=== PATIENT | male | born 1955 | race Caucasian/White ===

== ENCOUNTER → 2020-01-13 | Outpatient (CLI) | payer MEDICARE ==
[2020-01-13 16:56] LABS: HCT 41.2 % (39.0-53.0); HGB 13.4 gm/dL (13.0-17.5); MCH 30.1 pg (25.0-35.0); MCHC 32.4 g/dL (31.0-37.0); MCV 92.8 fL (80.0-100.0); Mean Platelet Volume 6.5; Platelet Count 290 k/uL (150-450); RBC 4.44 m/uL (4.30-5.90); RDW 13.2 % (11.5-15.5); WBC 7.1 k/uL (3.8-10.6)
[2020-01-13 17:08] LABS: Partial Thromboplastin Time 24.7 sec (22.0-30.0); Prothrombin Time 10.1 sec (9.0-12.0)
[2020-01-13 17:14] LABS: Appearance,Urine Clear (Clear); Bilirubin,Urine Negative (Negative); Blood,Urine Trace (Negative); Color,Urine Light Yellow; Glucose,Urine (UA) Negative (Negative); Ketones,Urine Negative (Negative); Leukocyte Esterase,Urine Negative (Negative); Nitrite,Urine Negative (Negative); PH, Urine 6.5 (5.0-8.0); Protein,Urine Negative (Negative); RBC,Urine 1 /hpf (0-5); Specific Gravity,Urine 1.006 (1.001-1.035); Urobilinogen,Urine <2.0 mg/dL (<2.0); WBC,Urine <1 /hpf (0-5)
[2020-01-13 17:18] LABS: ALT 17 U/L (4-49); AST 25 U/L (17-59); African American GFR (CKD) >90 (>60 ml/min/1.73 sqM); Albumin 4.2 g/dL (3.5-5.0); Alkaline Phosphatase 93 U/L (38-126); Anion Gap 7 mmol/L; Blood Urea Nitrogen 11 mg/dL (9-20); Calcium 9.6 mg/dL (8.4-10.2); Carbon Dioxide 29 mmol/L (22-30); Chloride 102 mmol/L (98-107); Glucose 107 mg/dL (74-99); Non-African American GFR(CKD) 90 (>60 ml/min/1.73 sqM); Potassium 4.6 mmol/L (3.5-5.1); Sodium 138 mmol/L (137-145); Total Bilirubin 0.4 mg/dL (0.2-1.3); Total Protein 6.9 g/dL (6.3-8.2)
== END | disposition home or self-care (01) ==
LOC: LABPAT 01-09 14:53
PROVIDERS: ATTEND Orthopaedic Surgery
DX: Z01.812 Encounter for preprocedural laboratory examination (principal); Z01.818 Encounter for other preprocedural examination
CPT/HCPCS: 80053; 81001; 85027; 85610; 85730; 87070

== ENCOUNTER 2020-01-23 11:18 | Day surgery (SDC) | payer MEDICARE, OTHER ==
[2020-01-16 12:35] VITALS: BMI 26.9
[~2020-01-23 11:18] MED LIST: ACETAMINOPHEN TAB 500 MG TAB PO PRN; GABAPENTIN 300 MG CAP PO PRN; MELOXICAM 7.5 MG TAB PO PRN; TRANEXAMIC ACID 1,000 MG in SODIUM CHLORIDE 0.9% 100 ML IVPB PRN
[2020-01-23] MEDS ORDERED: LACTATED RINGERS 1,000 ML IV ONE ×2 (12:02→13:47)
[2020-01-23] MEDS ORDERED: LIDOCAINE 1% (10MG/ML) FOR IV START INTRADERMA ONE (12:03)
[2020-01-23] MEDS ORDERED: ONDANSETRON 4 MG/2 ML VIAL ONE (12:14)
[2020-01-23] MEDS ORDERED: ONDANSETRON 4 MG/2 ML VIAL IVP ONE (12:19)
[2020-01-23] MEDS ORDERED: NALOXONE 0.4 MG/ML 1 ML VIAL IV PRN (12:20)
[2020-01-23] MEDS ORDERED: HYDROcodone/APAP 5-325MG 1 EACH TAB PO PRN (12:20)
[2020-01-23] MEDS ORDERED: HYDROmorphone 0.2 MG/1 ML SYRINGE IVP PRN ×2 (12:20→12:31)
[2020-01-23] MEDS ORDERED: MAGNESIUM HYDROXIDE 2,400 MG/10 ML CUP PO PRN (12:20)
[2020-01-23] MEDS ORDERED: DEXAMETHASONE SOD PHOSPHATE 4 MG/ML 1 ML VIAL IVP ONE (12:20)
[2020-01-23] MEDS ORDERED: hydrOXYzine pamoate 25 MG CAP PO PRN (12:20)
[2020-01-23] MEDS ORDERED: HYDROmorphone 0.5 MG/0.5 ML SYRINGE IVP PRN ×2 (12:20)
[2020-01-23] MEDS ORDERED: diazePAM 5 MG TAB PO PRN (12:20)
[2020-01-23] MEDS ORDERED: ONDANSETRON 4 MG/2 ML VIAL IVP PRN (12:20)
[2020-01-23] MEDS ORDERED: HEPARIN SODIUM,PORCINE 10,000 UNIT/ML 1 ML VIAL ONE (12:45)
[2020-01-23] MEDS ORDERED: SODIUM CHLORIDE 0.9% 100 ML BAG ONE (12:45)
[2020-01-23] MEDS ORDERED: SODIUM CHLORIDE 0.9% IRRIG 1,000 ML BTL IRRIGATION ONE (12:45)
[2020-01-23] MEDS ORDERED: fentaNYL (PF) 50 MCG/ML 2 ML AMP ONE (12:45)
[2020-01-23] MEDS ORDERED: ePHEDrine SULFATE/0.9% NACL/PF 50 MG/5 ML SYRINGE IV ONE (12:45)
[2020-01-23] MEDS ORDERED: TRANEXAMIC ACID 1,000 MG/10 ML VIAL ONE (12:45)
[2020-01-23] MEDS ORDERED: PROPOFOL 10 MG/ML 20 ML VIAL IV ONE (12:45)
[2020-01-23] MEDS ORDERED: MIDAZOLAM 2 MG/2 ML VIAL ONE (12:45)
[2020-01-23] MEDS: ROPIVACAINE 246.25 MG, EPINEPHrine 0.5 MG, KETOROLAC 30 MG, cloNIDine HCL/PF 80 MCG, WA... MISCELLANE PRN ×10 (13:21→13:53)
[2020-01-23] MEDS ORDERED: ceFAZolin 3,000 MG in SODIUM CHLORIDE 0.9% IRRIGATIO 3,000 ML IRRIGATION ONE (13:22)
--- NOTE | 2020-01-23 14:02 | P.OP ---
Date of Procedure: 01/23/20 Preoperative Diagnosis: Severe osteoarthritis right hip Postoperative Diagnosis: Severe osteoarthritis right hip Procedure(s) Performed: Right total hip arthroplasty direct anterior approach Implants: Cotton and nephew Polarstem size 6 standard Cotton & Nephew R3, 3 hole acetabular shell, 54 mm Cotton & Nephew reflection 6.5 mm cancellus screw, 20 mm 2 Cotton & Nephew R3, XLPE 20 acetabular liner Cotton & Nephew Oxinium femoral head 36 m, +4 All components were press-fit. The articulation is Oxinium on polyethylene. Anesthesia: spinal Surgeon: Buddy Montemayor Underwater Welder #1: Martha Donato Estimated Blood Loss (ml): 100 Pathology: other (Femoral head) Condition: stable Disposition: PACU Indications for Procedure: After failure of conservative treatment we discussed the surgical and nonsurgical treatment options at length. Patient wishes to proceed with a total hip arthroplasty with a direct anterior approach. Complications specific to this procedure were discussed at length, including but not limited to infection, leg length discrepancy, dislocation, and nerve injury. Covid-19 was also discussed at length with the patient, and they are aware of the current policies and procedures. The patient was given the option of delaying surgery, but they elect to proceed knowing these risks. Patient is aware of all these complications and informed consent was obtained Operative Findings: The operative findings are consistent with severe osteoarthritis of the right hip Description of Procedure: Patient was seen and evaluated in the preoperative area, consent was reviewed, and the surgical site was marked with a skin marker. Patient was then brought to the operating room and given prophylactic antibiotics intravenously. 1 g of Tranexamic acid was also given. A spinal anesthetic was administered by the anesthesia department. The patient was then placed on the [place] table with the bony prominences well-padded. The hip area was then prepped and draped in usual sterile fashion. A universal timeout was then performed, which confirmed the patient's name, surgical site, ALLERGIES, and procedure being performed. Next the incision site was located at 1 cm distal and 1 cm lateral to the anterior superior iliac spine. The skin and subcutaneous tissues were sharply incised. Incision was carefully dissected down to the fascia overlying the tensor fascia jamel muscle. This fascia was then incised in line with the incision. Next, using blunt finger dissection, the tensor fascia jamel muscle was dissected off its investing fascia. The muscle was then carefully retracted laterally with a cobra retractor over the lateral neck of the femur. Next, the circumflex vessels were identified and cauterized using the AquaMantis device. The anterior hip capsule was then exposed. The capsule was then opened and an inverted T fashion. Cobra retractors were then placed intracapsularly. The proximal femur was then visualized. The femoral neck was then osteotomized appropriate level above the lesser trochanter. Small amount of traction was placed with the [place] table. A small wedge of bone was then removed from the remaining femoral head. Next, using a corkscrew femoral head was easily removed from the acetabulum. On gross visual inspection, the femoral head had complete loss of articular cartilage in multiple periarticular osteophytes. Attention was then turned to the acetabulum. the acetabulum was exposed and any remaining labrum was excised. Sequential reaming of the acetabulum was performed using fluoroscopic guidance. When the appropriate size was reached, a trial was then placed. The position and fit of the trial was checked with fluoroscopy. The trial was then removed. Then, using fluoroscopic guidance, the final implant was impacted at 20 of anteversion and 40 of abduction, and fully seated in the acetabulum. 2 screws were then placed in the acetabulum. Again fluoroscopy was used to check positi on of the screws. Next, the liner was then impacted, with a 20 elevated liner located in the anterior superior quadrant. Component locking was confirmed. Attention was then directed to the femur. With the aid of the P[place]aw table, the femur was externally rotated to approximately 130, extended, and abducted under the opposite leg. A side hook was then placed under the proximal femur, and the side hook elevator was used to elevate the proximal femur. Retractors were then placed. A capsular release was performed, as well as a release of the conjoined tendon, which afforded excellent visualization of the proximal femur. Next, a box osteotome was used to lateralize the proximal femur. A displayer merchandise was then used to locate the femoral canal. Sequential broaching was then performed with appropriate size which afforded excellent fixation in the proximal femur. A trial was then placed with appropriate head and neck, and the hip was gently reduced with the aid of the P[place] table. Fluoroscopy was then used to check position of the components, as well as to ensure equal leg lengths. The hip was then gently dislocated and the trials were then removed. Final implants were then impacted and the hip was again reduced. Final fluoroscopic x-rays confirmed that the components were in anatomic position, as well as equal leg lengths. The hip was also taken through range of motion, and found to be stable. The hip was then copiously irrigated with antibiotic solution with pulsatile lavage. The hip was then irrigated with Irrisept solution. The soft tissues were then injected with a ropivacaine solution, which consisted of 246.25 mg of ropivacaine, 0.5 mg of epinephrine, 30 mg of Toradol, 80 g of clonidine, and 48.45 mL of sterile water, for a total of 100 mL of fluid injected. A second dose of 1 g of Tranexamic acid was also given. the fascia was then closed with 2-0 strata fix suture. The subcutaneous tissue was closed with 3-0 Vicryl. The subcuticular tissue was closed with 3-0 strata fix suture. The skin was then closed with Dermabond glue and a sterile silver dressing. The patient was then transferred to the recovery room in stable condition. The certified physician's assistant HEIDI Figueroa was required due to the complexity of surgery, and the need for skilled surgical instruments inspector for positioning, draping, exposure, retraction, and closure of the wound.
--- NOTE | 2020-01-23 14:13 | XR ---
EXAMINATION TYPE: XR Hip Limited RT DATE OF EXAM: 01/23/2020 COMPARISON: NONE HISTORY: Postop TECHNIQUE: One view submitted. FINDINGS: There is postsurgical change in near anatomic alignment. There is soft tissue edema and emphysema. IMPRESSION: 1. Postoperative change. Appears in near-anatomic alignment.
--- NOTE | 2020-01-23 14:15 | FL ---
EXAMINATION TYPE: FL guidance operating room DATE OF EXAM: 01/23/2020 HISTORY: Fluoroscopy time 53 seconds of fluoroscopy provided. IMPRESSION: 1. Fluoroscopy time.
[2020-01-23] MEDS: SODIUM CHLORIDE 0.9% 1,000 ML IV SCH (16:05)
[2020-01-23] MEDS ORDERED: amLODIPine 5 MG TAB PO SCH (18:00)
[2020-01-23] MEDS ORDERED: ATORVASTATIN 80 MG TAB PO SCH (18:00)
[2020-01-23] MEDS: ASPIRIN 325 MG TAB PO SCH (20:38)
[2020-01-23] MEDS ORDERED: SENNOSIDES-DOCUSATE SODIUM 1 EACH TAB PO SCH (21:00)
--- NOTE | 2020-01-23 22:58 | CONS ---
CONSULTATION REASON FOR CONSULTATION: Advice regarding CAD and multiple medical issues requested by Orthopedic surgery. HISTORY OF PRESENT ILLNESS: This 64-year-old gentleman with past medical history of CAD, hypertension, history of DJD, sleep apnea, underwent right total hip joint arthroplasty for severe degenerative joint disease. Patient being closely monitored. There is no history of fever, rigors. No history of headache loss of consciousness, seizures at this time. PAST MEDICAL HISTORY: History of CAD, hypertension, DJD, sleep apnea. MEDICATIONS: Prior to admission include Lipitor, aspirin, Norvasc, Motrin, Tylenol. ALLERGIES: None. FAMILY HISTORY: No history of any strokes in the family. SOCIAL HISTORY: No history of smoking. No history of alcohol. REVIEW OF SYSTEMS: ENT: No diminished vision. No diminished hearing. CARDIOVASCULAR: No angina or palpitations. RESPIRATIONS: No cough. No hemoptysis. GI no nausea or vomiting. : No dysuria. NERVOUS SYSTEM: No numbness or weakness. ALLERGY/IMMUNOLOGY: No asthma or hayfever. MUSCULOSKELETAL as mentioned earlier. HEMATOLOGY/ONCOLOGY: No history of anemia. ENDOCRINE: No history of diabetes or hypothyroidism. CONSTITUTIONAL: As mentioned earlier. DERMATOLOGY: Negative. RHEUMATOLOGY: Negative. CONSTITUTIONAL: As mentioned earlier. PHYSICAL EXAMINATION: Alert and oriented times three. Pulse is 70. Blood pressure 104/59, respirations 16, temperature 97.9, pulse ox 94% on room air. HEENT: Conjunctivae normal. NECK: No JVD. CARDIOVASCULAR: S1, S2 muffled. RESPIRATORY SYSTEM: Breath sounds diminished at the bases. No rhonchi. No crackles. ABDOMEN: Soft, nontender. LEGS status post hip arthroplasty. NERVOUS SYSTEM: No focal deficits. LABS: Preop labs: Hematology is normal. Coags are normal. Chemistries also within normal limits. ASSESSMENT: 1. Status post right total hip joint arthroplasty for severe degenerative joint disease. 2. History of coronary artery disease. 3. Hypertension. 4. Hyperlipidemia. 5. History of sleep apnea. 6. History of coronary artery disease, coronary artery bypass grafting. 7. FULL CODE. RECOMMENDATIONS AND DISCUSSION: This 64-year-old gentleman who presented with multiple complex medical issues, at this time I recommend to continue the current medications, management and symptomatic treatment. Otherwise, resume the home medications. Incentive spirometry. DVT prophylaxis. We will follow the patient closely. The patient may be asked to follow with primary physician, Dr. De La Torre in the outpatient office setting. Thank you Dr. Montemayor for letting us participate in the care of this patient. MMODL / IJN: [id number] /
[2020-01-24 05:25] VITALS: RESP 15
[2020-01-24] MEDS: SODIUM CHLORIDE 0.9% 1,000 ML IV SCH (05:55)
[2020-01-24] MEDS: HYDROcodone/APAP 5-325MG 1 EACH TAB PO PRN ×2 (06:00→11:56)
[2020-01-24 06:34] LABS: Basophils % (A) 0 %; Eosinophils % (A) 0 %; HCT 34.8 % (39.0-53.0); HGB 11.6 gm/dL (13.0-17.5); Lymphocytes # (A) 1.2 k/uL (1.0-4.8); Lymphocytes % (A) 10 %; MCH 30.8 pg (25.0-35.0); MCHC 33.5 g/dL (31.0-37.0); Monocytes # (A) 0.6 k/uL (0-1.0); Monocytes % (A) 5 %; Neutrophils # (A) 10.5 k/uL (1.3-7.7); Neutrophils % (A) 84 %; Platelet Count 265 k/uL (150-450); RBC 3.78 m/uL (4.30-5.90); RDW 12.7 % (11.5-15.5); WBC 12.5 k/uL (3.8-10.6)
[2020-01-24 07:49] VITALS: BP 99/57; PULSE 73; TEMP 97.7
[2020-01-24] MEDS ORDERED: MELOXICAM 7.5 MG TAB PO SCH (09:00)
--- NOTE | 2020-01-24 09:15 | P.DS ---
Providers Expected date of discharge: 01/24/20 Attending physician: Buddy Montemayor Consults: 01/23/20 12:20 Consult Physician Routine Consulting Provider: Amanda Maguire Consult Reason/Comments: medical management Do you want consulting provider notified?: Yes Primary care physician: Alison De La Torre - Discharge Diagnosis(es) (1) Osteoarthritis of right hip Current Visit: Yes Status: Acute (2) S/P total hip arthroplasty Current Visit: Yes Status: Acute Hospital Course: This is a 64-year-old male with known history of degenerative arthritis of the right hip. The patient presented for evaluation as an outpatient. After discussion and consideration patient elects to proceed with total hip arthroplasty. The patient is seen preoperatively by Dr. Montemayor and medically cleared for surgery by their primary care physician. Patient is admitted to [facility] on 01/23/2020 for total hip arthroplasty. The procedure is performed without complication or sequelae. The patient is doing well postoperatively. Labs and vital signs are stable on day of discharge. On day of discharge patient's hip incision is healing well. There is minimal erythema. There is no drainage noted at this time. There is minimal soft tissu e swelling to the hip and thigh. Patient has full foot and ankle motion without difficulty or pain. Calf is soft and nontender to palpation. Neurovascular status to the right lower extremity is intact. Patient is discharged home in good condition. Opioid start talking form is reviewed and signed. Please see med rec for accurate list of home medications. Plan - Discharge Summary Discharge Rx Participant: Yes New Discharge Prescriptions: New Aspirin 325 mg PO BID #60 tab HYDROcodone/APAP 5-325MG [Pep 5-325] 1 - 2 tab PO Q6HR PRN #48 tab PRN Reason: Pain Sennosides [Senokot] 2 tab PO DAILY PRN #60 tablet PRN Reason: Constipation No Action Aspirin 81 mg PO 1400 amLODIPine [Norvasc] 5 mg PO 1800 Atorvastatin [Lipitor] 80 mg PO 1800 Ibuprofen [Motrin] 400 mg PO Q6HR PRN PRN Reason: DIRECTED Acetaminophen [Tylenol Extra Strength] 1,000 mg PO DIRECTED Discharge Medication List Acetaminophen [Tylenol Extra Strength] 1,000 mg PO DIRECTED 01/16/20 [History] Aspirin 81 mg PO 1400 01/16/20 [History] Atorvastatin [Lipitor] 80 mg PO 1800 01/16/20 [History] Ibuprofen [Motrin] 400 mg PO Q6HR PRN 01/16/20 [History] amLODIPine [Norvasc] 5 mg PO 1800 01/16/20 [History] Aspirin 325 mg PO BID #60 tab 01/24/20 [Rx] HYDROcodone/APAP 5-325MG [Pep 5-325] 1 - 2 tab PO Q6HR PRN #48 tab 01/24/20 [Rx] Sennosides [Senokot] 2 tab PO DAILY PRN #60 tablet 01/24/20 [Rx] Follow up Appointment(s)/Referral(s): Buddy Montemayor DO [Doctor of Osteopathic Medicine] - 2 Weeks Activity/Diet/Wound Care/Special Instructions: Weightbearing as tolerated with walker. Leave dressing intact. Dressing may be removed by home care nurse or by patient in 10 days. May shower with dressing on. Please take aspirin 325mg twice daily for 30 days to prevent blood clots. Recommend use of compression stockings daily until follow up to help prevent swelling and blood clots. May remove at night before sleeping. Please follow[facility]up with [facility] in 2 weeks and call with any questions or concerns, . Discharge Disposition: HOME WITH HOME HEALTH SERVICES
[2020-01-24] MEDS: ASPIRIN 325 MG TAB PO SCH (09:30)
--- NOTE | 2020-01-24 14:02 | P.PN ---
Subjective Progress Note Date: 01/24/20 This is a 64-year-old male who was recently admitted under Dr. Montemayor for right total hip joint arthroplasty for severe degenerative joint disease and is being closely monitored. Home medications have been resumed. Patient is currently walking around in the room with a walker anticipating discharge today. Patient denies any chest pain, shortness of breath, or palpitations. Patient is afebrile. No reports of of nausea or vomiting noted and patient has been tolerating diet. Patient instructed to monitor blood pressure and keep a diary for primary care follow-up as patient takes amlodipine and blood pressure is 99/57. Blood pressure medications held today. Review of systems: Constitutional: No reports of fatigue, fever, or chills Cardiovascular: No reports of chest pain or palpitations Respiratory: No reports of shortness of breath or cough GI: No reports of nausea, vomiting, or diarrhea : No reports of dysuria or retention Neurovascular: No reports of weakness or numbness All medications have been reviewed Objective - Vital Signs Vital signs: Vital Signs Temp 97.7 F 01/24/20 07:00 Pulse 73 01/24/20 07:00 Resp 15 01/24/20 02:10 BP 99/57 01/24/20 07:00 Pulse Ox 92 L 01/24/20 07:00 Intake & Output 01/23/20 01/24/20 01/24/20 18:59 06:59 18:59 Intake Total 1987 Output Total 575 1700 Balance 1412 -1700 Weight 82.1 kg Intake: IV 1451 Oral 536 Output: Urine 475 1700 Estimated Blood Loss 100 Other: Voiding Method Toilet Toilet Urinal Urinal # Bowel Movements 0 0 - Exam Gen: This is a 64-year-old male awake, alert and oriented 3, well-developed, well-nourished. Temp is 97.7F, pulse is 73, respirations are 15, blood pressure 99/57, oxygen saturation is 92% on room air HEENT: Head is atraumatic, normocephalic. Pupils equal, round. Sclerae is anicteric. NECK: Supple. No JVD. No lymphadenopathy. No thyromegaly. LUNGS: Breath sounds diminished bilaterally with no wheezes or rhonchi. No intercostal retractions. HEART: Regular rate and rhythm. No murmur. ABDOMEN: Soft. Bowel sounds are present. No masses. No tenderness. EXTREMITIES: No pedal edema. No calf tenderness. Right hip surgical site dry and intact NEUROLOGICAL: Patient is awake, alert and oriented x3. Cranial nerves 2 through 12 are grossly intact. - Labs CBC & Chem 7: 01/24/20 06:19 Labs: Abnormal Lab Results - Last 24 Hours (Table) 01/24/20 Range/Units 06:19 WBC 12.5 H (3.8-10.6) k/uL RBC 3.78 L (4.30-5.90) m/uL Hgb 11.6 L (13.0-17.5) gm/dL Hct 34.8 L (39.0-53.0) % Neutrophils # 10.5 H (1.3-7.7) k/uL Assessment and Plan Assessment: Status post right total hip joint arthroplasty for severe degenerative joint disease History of coronary artery disease Hypertension Hyperlipidemia History of sleep apnea History of coronary artery disease, CABG Full code Recommendations and discussion: Recommend to continue with current medications, management, and symptomatic treatment. Continue with home medications. Discussed with patient about increasing activity as tolerated as he is currently walking around his room with a walker. States he does have a walker at the home. Also discussed with the patient about continuing to use incentive spirometer at least 10 times every hour while awake at home as well. Will continue to follow along closely with orthopedic surgery during hospitalization. Further recommendations to follow. Patient states he is being discharged today.
== END 2020-01-24 12:32 | disposition home health service (06) ==
LOC: OR 11:18 → 4SSUR 14:12 → OR 01-24 12:32
PROVIDERS: ATTEND Orthopaedic Surgery
DX: M16.11 Unilateral primary osteoarthritis, right hip (principal); M25.751 Osteophyte, right hip; I25.10 Atherosclerotic heart disease of native coronary artery without angina pectoris; I10 Essential (primary) hypertension; G47.30 Sleep apnea, unspecified; Z79.82 Long term (current) use of aspirin; Z79.1 Long term (current) use of non-steroidal anti-inflammatories (NSAID); Z79.899 Other long term (current) drug therapy; Z95.1 Presence of aortocoronary bypass graft; E78.5 Hyperlipidemia, unspecified; Z91.048 Other nonmedicinal substance allergy status
CPT/HCPCS: 97161; 97166; 86891; 85025; 88300; 73501; 27130; C1776; J2250; J0171; J1644; J1100; J0690 ×3; J2405; J3010; J1885; J2795; J2704; J0735; 86850; 86900; 86901